=== PATIENT | male | born 1955 | race Caucasian/White ===

== ENCOUNTER → 2017-03-04 | Outpatient (REF) | payer BC, OTHER | LOC: M LAB REF 12:45 | DX: C44.509 Unspecified malignant neoplasm of skin of other part of trunk (principal) | CPT/HCPCS: 88305 ==

== ENCOUNTER → 2017-04-21 | Outpatient (CLI) | payer BC, OTHER | LOC: M EKG 09:15 | DX: I49.9 Cardiac arrhythmia, unspecified (principal) | CPT/HCPCS: 93226 ==

== ENCOUNTER 2019-01-24 09:23 | Inpatient (IN) | payer BC, OTHER ==
--- NOTE | 2019-01-16 14:10 | HPE ---
DATE OF ADMISSION: 01/24/2019 ATTENDING PHYSICIAN: Dr. Walsh CHIEF COMPLAINT: Right knee pain and stiffness. HISTORY: Patient is a pleasant 63-year-old male with progressively worsening right knee pain and stiffness. He failed to improve with conservative measures. He continues to have symptoms with weightbearing activities and activities of daily living. The patient consented for an elective right total knee arthroplasty with Dr. Walsh for his continued symptoms. Medical optimization completed with Dr. Gabriel and was reviewed during appointment today. CURRENT MEDICATIONS: - aspirin 81 mg daily - omeprazole 40 mg daily - hydrochlorothiazide 12.5 mg daily - losartan 100 mg daily - amlodipine 5 mg daily - Paxil 10 mg daily - Eliquis 2.5 mg daily ALLERGIES: 1. KEFLEX. CHRONIC MEDICAL CONDITIONS: Gastroesophageal reflux disease. Hypertension. Cardiomegaly. Multiple pulmonary nodules. History of acute popliteal deep vein thrombosis (DVT). Premature ventricular contractions (PVCs). Anxiety. Obstructive sleep apnea. History of basal cell carcinoma on the back. PAST SURGICAL HISTORY: Hernia repair. Right elbow surgery. SOCIAL HISTORY: The patient denies tobacco use and rarely consumes alcohol. REVIEW OF SYSTEMS: The patient denies fevers, chills, nausea, vomiting or diarrhea. Denies chest pain, shortness of breath, lightheadedness or dizziness. Denies any recent upper respiratory or urinary tract infection symptoms. He denies any abdominal pain. He does have right greater than left knee pain with weightbearing activities and activities of daily living. PHYSICAL EXAMINATION: GENERAL: Well-nourished, well-developed male in no apparent distress. He is alert, oriented and cooperative. Mood and affect are appropriate. Breathing is regular and nonlabored. VITAL SIGNS: Height 6 feet 2-1/2 inches, weight 291.2 pounds, temperature 97.4, heart rate 66, respirations 17, blood pressure 136/80. NECK: Supple without lymphadenopathy. HEART: Regular rate and rhythm. LUNGS: Clear to auscultation bilaterally. ABDOMEN: Bowel sounds are present. Abdomen is soft and nontender to palpation. MUSCULOSKELETAL: Right knee exhibits no gross abnormalities. Skin is intact. Tenderness to palpation noted along the medial and lateral joint line. The patient can extend knee to about 2 degrees and flex to about 100 degrees. Right lower extremity strength is 5/5. No hip irritability elicited with range of motion testing. The patient's calf is soft, nontender to palpation with no palpable cords noted. He is neurovascularly intact distally. LABORATORY DATA: Chest x-ray no acute disease. Right knee x-ray notable for end-stage degenerative changes. EKG reveals marked sinus bradycardia with nonspecific ST wave abnormalities. Comprehensive metabolic profile: Sodium 140, potassium 4.1, chloride 101, carbon dioxide 29.8, alkaline phosphatase 84, glucose 95, BUN elevated at 28, creatinine 1.07, GFR greater than 60, BUN/creatinine ratio elevated at 26, total protein 7.5, albumin 4.3, albumin-globulin ratio 1.3, calcium 9.8, total bilirubin elevated at 1.2, AST 26, ALT 47, anion gap 13. Complete blood count: WBC is 6.4, RBC 5.81, hemoglobin elevated at 18.5, hematocrit elevated at 53.5, platelets 164. Prothrombin time 14.3, INR 1.1. IMPRESSION: Right knee osteoarthritis with x-rays notable for end-stage degenerative changes. PLAN: The patient has consented for an elective right total knee arthroplasty with Dr. Walsh for his continued symptoms. Medical optimization completed with Dr. Madi Gabriel. TED
[~2019-01-24] VITALS: Ht 190.5 cm; Wt 132.9 kg
[~2019-01-24 09:23] MED LIST: ACETAMINOPHEN 500 MG TAB PO ONE; AMLO5TAB6 PO; ASPI81TA85 PO; ELIQ2.5T PO; HYDR12CA PO; LIDOCAINE 1% MDV 20ML VIAL SQ PRN; LIDOCAINE 2% INJ 100 MG/5 ML SDV (FOR ANES.) As Ordered ONE; LOSA100T50 PO; LR 1,000 ML IV ONE; MIDAZOLAM INJ 2 MG/2 ML VIAL (J2250) As Ordered ONE; OMEP40CA97 PO; ONDANSETRON 4MG/2ML VIAL (J2405) As Ordered ONE; PAXI10TA12 PO; PROPOFOL 200 MG/20 ML VIAL As Ordered ONE; ceFAZolin SOD 1 GM in D5W MINI-BAG PLUS 50 ML IV ONE; ceFAZolin SOD 2 GM in IV 1 EA IV ONE; fentaNYL 100 MCG/2 ML INJECTION (J3010) As Ordered ONE
[2019-01-24] MEDS ORDERED: ceFAZolin 1GM INJ (J0690 PER 500MG) As Ordered ONE ×2 (09:39→10:31)
[2019-01-24] MEDS ORDERED: ceFAZolin 2 GM/D5W 50 ML IV BAG (J0690 PER 500MG) As Ordered ONE (09:40)
[2019-01-24] MEDS ORDERED: VANCOMYCIN 1000 MG/20 ML VIAL (J3370) As Ordered ONE (10:13)
[2019-01-24] MEDS ORDERED: VIAL MATE ADAPTER XX ONE ×2 (10:13→10:14)
[2019-01-24] MEDS ORDERED: TRANEXAMIC ACID 100 MG/ML 10ML VIAL As Ordered ONE (10:30)
[2019-01-24] MEDS ORDERED: BUPIVACAINE LIPOSOME/PF 1.3% 20ML VIAL (13.3MG/ML)(EXPAREL)(C9290 PER1MG) As Ordered ONE (10:31)
[2019-01-24] MEDS ORDERED: EPINEPHrine INJ 1 MG/ML 1ML AMP As Ordered ONE (10:31)
[2019-01-24] MEDS ORDERED: BUPIVACAINE HCL 0.25% 10 ML VIAL As Ordered ONE (10:31)
[2019-01-24] MEDS ORDERED: ENOX150I3 SC (10:31)
[2019-01-24] MEDS ORDERED: VANCOMYCIN HCL 1,000 MG, VIAL MATE ADAPTER 1 EACH in D5W 250 ML IV ONE (11:00)
[2019-01-24] MEDS ORDERED: fentaNYL 100 MCG/2 ML INJECTION (J3010) As Ordered ONE (11:24)
[2019-01-24] MEDS ORDERED: MIDAZOLAM INJ 2 MG/2 ML VIAL (J2250) As Ordered ONE (11:24)
[2019-01-24] MEDS ORDERED: fentaNYL 100 MCG/2 ML INJECTION (J3010) IV ONE (12:30)
[2019-01-24] MEDS ORDERED: MIDAZOLAM INJ 2 MG/2 ML VIAL (J2250) IV ONE (12:30)
[2019-01-24] MEDS ORDERED: ePHEDrine SULFATE 25 MG/5 ML(5MG/ML) SYRINGE As Ordered ONE (13:17)
[2019-01-24] MEDS ORDERED: PROPOFOL 200 MG/20 ML VIAL As Ordered ONE (13:17)
[2019-01-24] MEDS ORDERED: LIDOCAINE 1% MDV 20ML VIAL ONE (14:27)
[2019-01-24] MEDS ORDERED: dexameTHASONE 10 MG/1 ML VIAL PRES.FREE (J1100) ONE (14:27)
[2019-01-24] MEDS ORDERED: ROPIvacaine 0.5% 30 ML INJECTION (J2795 PER 1MG) ONE (14:27)
[2019-01-24] MEDS ORDERED: ONDANSETRON 4MG/2ML VIAL (J2405) IV PRN (14:45)
[2019-01-24] MEDS ORDERED: HYDROMORPHONE HCL 0.5 MG/ 0.5 ML SYRINGE (J1170 PER 1) IV PRN ×3 (14:45)
[2019-01-24] MEDS ORDERED: LR 1,000 ML IV SCH (14:45)
[2019-01-24] MEDS ORDERED: ACETAMINOPHEN TAB 650MG DOSE (2X325MG) PO PRN (14:45)
[2019-01-24] MEDS ORDERED: fentaNYL 100 MCG/2 ML INJECTION (J3010) IV PRN (14:45)
[2019-01-24] MEDS ORDERED: FLEET ENEMA PR PRN (14:45)
[2019-01-24] MEDS ORDERED: PERCOCET 5MG/325MG TAB PO PRN (14:45)
--- NOTE | 2019-01-24 14:59 | REP ---
Two views right knee: 01/24/2019. Indication: Postoperative assessment. Comparison: None. Findings: The patient is immediately status post total right knee arthroplasty with the hardware well seated and intact. Expected gas is noted within the postoperative soft tissues. There is no evidence of acute fracture. Bony alignment appears anatomic. Impression: Expected postoperative sequelae of the right knee. Electronically Signed by Justino White DO 01/24/2019 02:50 P
[2019-01-24 15:45] VITALS: BP 123/69
[2019-01-24] MEDS: LR 1,000 ML IV SCH (15:49)
[2019-01-24 16:15] VITALS: BP 120/68
[2019-01-24 17:15] VITALS: BP 128/69
[2019-01-24] MEDS: PERCOCET 5MG/325MG TAB PO PRN ×2 (17:56→21:46)
[2019-01-24 18:15] VITALS: BP 117/70
--- NOTE | 2019-01-24 18:15 | HPEPDOC ---
General Date of Admission Jan 24, 2019 at 09:23 Date of Service: Jan 24, 2019 Attending Physician: CASTILLO OWEN MD Chief Complaint The patient is a 63-year-old male admitted with a reason for visit of Osteoarthritis Right Knee. Source: Patient Exam Limitations: Clinical conditions Timing/Duration: Other (post op) History of Present Illness 63 yo man with osteoarthritis, HTN, obesity, DIEGO, history of DVT on eliquis at baseline, currently on Lovenox perisurgery is admitted for observation post elective right total knee arthroplasty with Dr. Walsh, with medicine consulted for medical management of his chronic conditions. Surgery went well and at this time, he has no complaints reporting that he is only beginning to feel his legs now as he had a block and has no pain at this time. Home Medications Scheduled Amlodipine Besylate (Amlodipine Besylate) 5 Mg Tablet, 5 MG PO DAILY, (Reported) Apixaban (Eliquis) 2.5 Mg Tablet, 2.5 MG PO BID, (Reported) Aspirin (Aspir 81) 81 Mg Tablet.dr, 81 MG PO DAILY, (Reported) Enoxaparin Sodium (Enoxaparin Sodium) 150 Mg/1 Ml Syringe, 130 MG SC BID, (Reported) Hydrochlorothiazide (Hydrochlorothiazide) 12.5 Mg Capsule, 12.5 MG PO DAILY, (Reported) Losartan Potassium (Losartan Potassium) 100 Mg Tablet, 100 MG PO DAILY, (Reported) Omeprazole (Omeprazole) 40 Mg Capsule.dr, 40 MG PO 3XW, (Reported) Paroxetine HCl (Paxil) 10 Mg Tablet, 20 MG PO DAILY, (Reported) Allergies Coded Allergies: cephalexin (Verified Adverse Reaction, Mild, nausea, 01/23/19) Past Medical History Medical History Gastroesophageal reflux disease. Hypertension. Cardiomegaly. Multiple pulmonary nodules. History of acute popliteal deep vein thrombosis (DVT). Premature ventricular contractions (PVCs). Anxiety. Obstructive sleep apnea. History of basal cell carcinoma on the back Surgical History Hernia repair. Right elbow surgery. Family History Significant Family History: No pertinent family hx Social History * Smoker: Denies Alcohol: rarely Drugs: denies Recent Travel/Sick Contacts: Denies: Recent travel, Recent sick contacts Psychosocial History: No pertinent psych hx The patient denies tobacco use and rarely consumes alcohol. A-FIB/CHADSVASC A-FIB History Current/History of A-Fib/PAF?: No Current PO Anticoag Therapy: No Age/Risk Factor Scoring CHADSVASC: CHADSVASC Response (Comments) Value Age Risk Factor Age < 65 years old 0 Gender Risk Factor Male 0 Hx of CHF No 0 Hx of HTN Yes 1 Hx of Stroke/TIA/or VTE No 0 Hx of Diabetes No 0 Hx of Vascular Disease No 0 Total 1 Treatment Treatment ordered: Other (lovenox) Other anticoagulant ordered: Lovenox for history of DVTs Review of Systems Constitutional: Denies: Chills, Fever, Night Sweats Eyes: Denies: Pain, Vision change ENT: Denies: Head Aches, Ear Pain, Dysphagia Skin: Denies: Rash, Lesions, Breakdown Pulmonary: Denies: Dyspnea, Cough Cardiovascular: Denies: Chest Pain, Palpitations, Orthopnea, Paroxysmal Noc. Dyspnea, Lt Headedness Gastrointestinal: Denies: Nausea, Vomiting, Abdominal Pain, Diarrhea Genitourinary: Denies: Dysuria, Frequency, Incontinence, Retention Hematologic: Denies: Bruising, Bleeding Excessively Endocrine: Denies: Polydipsia, Polyphagia, Polyuria, Heat Intolerance, Cold Intolerance, Other Endocrine Sx Musculoskeletal: Reports: Joint Pain (history of knee pain, and is the reason the surgery was done); Denies: Neck Pain, Back Pain, Muscle Pain, Spasms Neurological: Denies: Weakness, Numbness, Change in speech, Confusion Psych: Reports: Mood Normal; Denies: Depression, Memory Issues Physical Examination General Exam: Positive: Alert, No Acute Distress Eye Exam: Positive: PERRLA, Conjunctiva & lids normal, EOMI; Negative: Sclera icteric ENT Exam: Positive: Atraumatic, Mucous membr. moist/pink, Pharynx Normal Neck Exam: Positive: Supple; Negative: JVD, thyromegaly, +2 carotid pulse wo bruit, Lymphadenopathy, Other Chest Exam: Positive: Clear to auscultation, Normal air movement Heart Exam: Positive: Rate Normal, Regular Rhythm, Normal S1, Normal S2; Negative: Murmurs, Rubs Abdomen Exam: Positive: Normal bowel sounds, Soft; Negative: Tenderness, Hepatospenomegaly Extremity Exam: Positive: Normal pulses; Negative: Clubbing, Cyanosis, Edema Skin Exam: Positive: Nl turgor and temperature; Negative: Breakdown, Lesion Neuro Exam: Positive: Normal Speech, Cranial Nerves 3-12 NL, Other (UE strength 5/5, LE exam limited ) Psych Exam: Positive: Mental status NL, Mood NL, Oriented x 3 Vital Signs Vital Signs Date Time Temp Pulse Resp B/P (MAP) Pulse Ox O2 Delivery O2 Flow Rate FiO2 01/24/19 17:56 18 Room Air 01/24/19 17:15 97.9 58 128/69 (88) 96 2.0 Assessment/Plan 63 yo man with a history hypertension, GERD, DVT usually on eliquis at baseline, recently on lovenox perisurgery, anxiety, DIEGO and chronic arthritic knee pain who was admitted post an elective right total knee arthroplasty with Dr. Walsh who is currently doing well, for whom medicine is consulted for chronic medical conditions. Plan: Post op pain management: per surgery HTN: restart home meds tomorrow morning -Novarsc, HCTZ, Losartan History of VTEs: -will give lovenox 130 SC tonight to continue the perioperative anticoagulation plan -to resume eliquis tomorrow morning if he remains stable with no evidence of bleeding -Would at that time also resume ASA81 Plan / VTE VTE Prophylaxis Ordered?: Yes CASTILLO OWEN MD Jan 24, 2019 18:15
[2019-01-24 19:50] VITALS: BP 118/71
[2019-01-24] MEDS ORDERED: ENOXAPARIN 150 MG/ML SYR (J1650) SC SCH (21:00)
[2019-01-25] VITALS: BP 118/74
[2019-01-25] MEDS: LR 1,000 ML IV SCH (00:59)
[2019-01-25] MEDS: VANCOMYCIN HCL 1,000 MG, VIAL MATE ADAPTER 1 EACH in D5W 250 ML IV SCH ×2 (01:49→11:08)
[2019-01-25 04:15] VITALS: BP 133/82
[2019-01-25] MEDS: PERCOCET 5MG/325MG TAB PO PRN ×3 (05:49→13:50)
[2019-01-25] MEDS ORDERED: PERC5TAB12 PO (06:26)
[2019-01-25 06:37] LABS: HEMATOCRIT 47.4 % (42.0-52.0); HEMOGLOBIN 16.9 g/dl (13.5-17.5); MEAN CORPUSCULAR HEMOGLOBIN 32.1 pg (27.0-33.0); MEAN CORPUSCULAR HGB CONC 35.7 g/dl (32.0-36.5); MEAN CORPUSCULAR VOLUME 89.9 fl (80.0-96.0); PLATELET COUNT, AUTOMATED 179 10^3/uL (150-450); RED BLOOD COUNT 5.27 10^6/uL (4.30-6.10)
[2019-01-25 06:49] LABS: INR 1.16; PROTHROMBIN TIME 14.5 SECONDS (11.8-14.0)
[2019-01-25 06:59] LABS: BLOOD UREA NITROGEN 22 MG/DL (7-18); CALCIUM LEVEL 8.9 MG/DL (8.8-10.2); CARBON DIOXIDE LEVEL 28 MEQ/L (21-32); CHLORIDE LEVEL 100 MEQ/L (98-107); CREATININE FOR GFR 1.11 MG/DL (0.70-1.30); GLOMERULAR FILTRATION RATE > 60.0 (>49); GLUCOSE, FASTING 138 MG/DL (70-100); POTASSIUM SERUM 4.1 MEQ/L (3.5-5.1); SODIUM LEVEL 136 MEQ/L (136-145)
[2019-01-25 07:58] LABS: HEMATOCRIT 45.8 % (42.0-52.0); HEMOGLOBIN 16.2 g/dl (13.5-17.5); MEAN CORPUSCULAR HEMOGLOBIN 31.8 pg (27.0-33.0); MEAN CORPUSCULAR HGB CONC 35.4 g/dl (32.0-36.5); PLATELET COUNT, AUTOMATED 174 10^3/uL (150-450); RED BLOOD COUNT 5.09 10^6/uL (4.30-6.10); WHITE BLOOD COUNT 20.1 10^3/uL (4.0-10.0)
[2019-01-25 07:59] VITALS: BP 133/82
[2019-01-25] MEDS ORDERED: RIVAROXABAN 10 MG TAB (XARELTO) PO SCH (08:00)
[2019-01-25] MEDS ORDERED: MIRALAX *UNIT DOSE* 17GM PACKET PO SCH (09:00)
[2019-01-25] MEDS ORDERED: amLODIPine 5 MG TAB PO SCH (09:00)
[2019-01-25] MEDS ORDERED: SENOKOT S TAB PO SCH (09:00)
[2019-01-25] MEDS ORDERED: APIXABAN 2.5 MG TAB (ELIQUIS) PO SCH (09:00)
[2019-01-25] MEDS ORDERED: PARoxetine 20 MG TAB PO SCH (09:00)
[2019-01-25] MEDS ORDERED: hydroCHLOROthiazide 12.5 MG CAPSULE PO SCH (09:00)
[2019-01-25] MEDS ORDERED: LOSARTAN 50 MG TAB PO SCH (09:00)
[2019-01-25] MEDS ORDERED: MOM 30ML SUSPENSION UDC PO SCH (09:00)
[2019-01-25] MEDS ORDERED: OMEPRAZOLE 20 MG CAP PO SCH (09:00)
--- NOTE | 2019-01-25 09:14 | RO ---
DATE OF PROCEDURE: 01/24/2019 PREOPERATIVE DIAGNOSIS: Right knee degenerative arthritis. POSTOPERATIVE DIAGNOSIS: Same. PROCEDURE: Right total knee arthroplasty using a size 9 cruciate retaining femoral component. Size 9 tibial tray with a 6 mm rotating platform polyethylene insert, 8 mm polyethylene button. All components were cemented. Prosthesis was made by [employer]. It was an Att[employer] knee. SURGEON: Dr. Prasad Walsh CONTAINERS SALES REPRESENTATIVE: Mrs. Ghada Beth ANESTHESIA: Spinal with right femoral nerve block. COMPLICATIONS: None. PROCEDURE: Antibiotics were given intravenously preoperatively under a successful right femoral nerve block and then a spinal anesthetic was induced and tourniquet was placed right upper thigh and not inflated. Right lower extremity was carefully prepped and draped in the usual sterile fashion and elevated and after an appropriate time out the tourniquet was inflated. A longitudinal incision was made for a medial parapatellar approach to the knee. Bovie cautery was used to coagulate crossing vessels. Subperiosteal dissection around the proximal medial and lateral tibial plateaus was performed and then we everted the patella and flexed the knee and debrided the ACL. The Drill was placed down the center of the femoral canal followed intramedullary isabel and the distal femoral cutting jig set at 5 degree valgus cut angle at 9 mm resection level for a right knee. The block was pinned into position. Distal femoral cut was performed. AP sizing jig sized for a size 9. 30 degrees of external rotation were dialed in and the pins were placed and the 4 in 1 block applied and secured to the distal femur. Anterior and posterior chamber cuts were then performed. We then placed the jig for the sulcus cut and pinned it under the distal femur and performed a sulcus cut osteotomy. We then exposed the proximal tibia and used the extramedullary alignment jig to estimate being parallel to the mechanical axis of the tibia referencing off the medial tibial condyle. This was set as a 4 mm resection level. Block was pinned in to position and the secondary check with the extramedullary isabel confirmed that we appeared to be parallel to the mechanical axis. We then performed the proximal tibial osteotomy. Laminar tea blender was then placed laterally and we performed a completion medial meniscectomy, debridement of the posterior medial osteophytes and then placed the lamina tea blender medially and performed a completion lateral meniscectomy and debridement. Posterolateral osteophyte. We then placed a spacer block and the 6 mm spacer fit the best. It was stable to varus and valgus stress testing in both flexion and in extension. He had full extension on the table and easily flexed again at 90 degrees. We then removed the spacer block and exposed the proximal tibia sized for a #9 tibial tray which is pinned into position followed by the reamer and the broach. Then the trial was placed followed by the trial femoral component. The knee was brought in to extension. The patella was everted and a patellar osteotomy was performed sized for a 38 button, lug holes drilled and trial was placed and the patellofemoral tracking was noted to be anatomic. We then drilled the lug holes for the femur and then removed all the trial components and then placed Exparel in the subperiosteal tissues around the distal femur and the proximal tibia and copiously pulsatile lavaged irrigated out the knee joint. As I was irrigating out the knee joint Ghadacatrachita Beth my news production assistant mixed the cement at the back table. She also was critical to the success of this difficult surgery by helping with appropriate soft-tissue retraction, helped to manipulate the knee, helped to close the wound and mix the cement, prepare the patient for surgery amongst many other tasks to allow me to perform the operation smoothly, efficiently and safely. Once all of the bony surfaces had been thoroughly irrigated and dried we cemented the tibial tray and removed excess cement and placed the polyethylene and cemented the femoral component and removed excess cement and brought the knee out in extension, everted the patella and cemented the patellar button. Removed excess cement. We had the leg in full extension with the clamp and patella in place we then copiously irrigated out the knee joint until the cement hardened. TXA was placed in the knee and we began closing the apex of the arthrotomy with two #1 PDS sutures, medial parapatellar area was closed with a #1 PDS suture then we closed the rest of the capsule with a running #1 double arm- Stratafix. The tourniquet was then released and we irrigated between layers and closed the deep subdermal tissues with interrupted 2-0 PDS sutures and skin was closed with keshav covered by an Opti foam dry sterile bulky dressing. The patient was then transferred to the recovery room in stable condition. There are no intraoperative complications.
[2019-01-25 10:00] VITALS: BP 124/79
--- NOTE | 2019-01-25 11:56 | IPNPDOC ---
Text Note Date of Service The patient was seen on 01/25/19. NOTE Subjective: -Doing well, pain well controlled -Otherwise no acute events overnight Objective: Vitals: hemodynamically stable and afebrile General: Well appearing, obese, NAD HEENT: NCAT, PERRLA, EOMI, MMM Neck: supple, no JVD Pulm: CTAB Cardiac: RRR, no mrg Abd: obese, normoactive, soft, NTND Ext: WWP, 2+ DP pulses MSK: FROM in UE, LE exam limited by pain given recent surgery Neuro: grossly nonfocal examination with cranial nerves 2-12 intact and moving all extremities Psych: AOx3 Labs: Reviewed WBC 22 ( no prior for comparison), Cr 1.1 Assessment 63 yo man with a history hypertension, GERD, DVT usually on eliquis at baseline, recently on lovenox perisurgery, anxiety, DIEGO and chronic arthritic knee pain who was admitted post an elective right total knee arthroplasty with Dr. Walsh who is currently doing well, for whom medicine is consulted for chronic medical conditions. Plan: Leukocytosis: likely reactive post op given nonfocal exam, hemodynamic stability and afebrile. -OK to discharge with close PCP follow up. Post op pain management: per surgery HTN: restart home meds tomorrow morning -Restart Novarsc, HCTZ, Losartan this morning History of VTEs: -resume eliquis this morning -resume ASA81 VS,Fishbone, I+O VS, Fishbone, I+O Laboratory Tests 01/25/19 06:11 Vital Signs Date Time Temp Pulse Resp B/P (MAP) Pulse Ox O2 Delivery O2 Flow Rate FiO2 01/25/19 06:32 19 01/25/19 04:15 97.4 53 133/82 (99) 95 Nasal Cannula 2.0 I&O- Last 24 Hours up to 6 AM 01/25/19 06:00 Intake Total 3455 ml Output Total 1120 ml Balance 2335 ml CASTILLO OWEN MD Jan 25, 2019 07:26
== END 2019-01-25 13:50 | disposition home or self-care (01) | DRG 302 ==
LOC: M OR 09:23 → M MS5PR 15:30
PROVIDERS: ADMIT Orthopaedic Surgery; ATTEND Orthopaedic Surgery
PROC: 0SRC0J9 Replacement of Right Knee Joint with Synthetic Substitute, Cemented, Open Approach (ICD-10-PCS; principal; 2019-01-24 12:00)
DX: M17.11 Unilateral primary osteoarthritis, right knee (principal); Z79.82 Long term (current) use of aspirin; Z79.899 Other long term (current) drug therapy; K21.9 Gastro-esophageal reflux disease without esophagitis; I10 Essential (primary) hypertension; R91.8 Other nonspecific abnormal finding of lung field; F41.9 Anxiety disorder, unspecified; Z86.718 Personal history of other venous thrombosis and embolism; G47.33 Obstructive sleep apnea (adult) (pediatric); Z85.828 Personal history of other malignant neoplasm of skin; I51.7 Cardiomegaly; E66.9 Obesity, unspecified; D72.829 Elevated white blood cell count, unspecified

== ENCOUNTER 2019-05-07 07:02 | Inpatient (IN) | payer BC, OTHER ==
--- NOTE | 2019-05-03 15:34 | HPE ---
DATE OF ADMISSION: 05/07/2019 ATTENDING PHYSICIAN: Dr. Walsh CHIEF COMPLAINT: Left knee pain and stiffness. HISTORY: The patient is a pleasant 63-year-old male with progressively worsening left knee pain and stiffness. He failed to improve with conservative measures. He continued to have symptoms with weightbearing activities and activities of daily living. He has consented for an elective left total knee arthroplasty with Dr. Walsh for his continued symptoms. Medical optimization completed with Dr. Gabriel. CURRENT MEDICATIONS: - aspirin 81 mg daily - hydrochlorothiazide 12.5 mg daily - Paxil 10 mg daily - omeprazole 40 mg daily - losartan 100 mg daily - amlodipine 5 mg daily - Eliquis 2.5 mg daily ALLERGIES: KEFLEX CHRONIC MEDICAL CONDITIONS: Hypertension, cardiomegaly, multiple pulmonary nodules, gastroesophageal reflux disease, history of deep vein thrombosis (DVT), PVCs, anxiety, obstructive sleep apnea on C-PAP, history of basal cell carcinoma on the back. PAST SURGICAL HISTORY: Right total knee arthroplasty, right elbow surgery, hernia repair. SOCIAL HISTORY: The patient denies tobacco use and rarely consumes alcohol. REVIEW OF SYSTEMS: The patient denies fevers, chills, nausea, vomiting or diarrhea. Denies chest pain, shortness of breath, lightheadedness, dizziness or headaches. Denies any recent upper respiratory or urinary tract infection symptoms. Denies abdominal pain. He does continue to have left knee pain with weightbearing activities and activities of daily living. PHYSICAL EXAMINATION: General: Well-nourished, well-developed male in no apparent distress. He is alert, oriented and cooperative. Mood and affect are appropriate. Vital signs: Blood pressure 124/80, heart rate 66, respirations 18, height 6 feet 3 inches, weight 298 pounds, temperature 97.7. Neck: Supple without lymphadenopathy. Heart: Regular rate and rhythm. Lungs: Clear to auscultation bilaterally. Breathing is regular and nonlabored. Abdomen: Bowel sounds are present. Abdomen is soft and nontender to palpation. Musculoskeletal: Left knee exhibits no gross abnormalities. Skin is intact. There is tenderness along the medial joint line. The patient can extend knee fully and flex to about 110 degrees. Left lower extremity strength is 5/5. There was no hip irritability elicited with range of motion testing. The patient's calf is soft, nontender to palpation with no palpable cords noted. He is neurovascularly intact distally. DIAGNOSTIC DATA: Chest x-ray showed no acute disease. EKG marked sinus bradycardia with nonspecific ST abnormality. Prothrombin time 13.9, INR 1.1. Complete blood count WBC is 7.7, RBCs 5.76, hemoglobin elevated at 17.9, hematocrit elevated at 52.4, platelets 184. Comprehensive metabolic profile: Sodium 141, potassium 3.8, chloride 102, CO2 31, glucose elevated at 109, BUN elevated at 25, creatinine 1.02, GFR greater than 60, total protein 7.2, albumin 4.0, globulin 3.2, albumin-globulin ratio 1.3, calcium 9, total bilirubin elevated at 1.1, alkaline phosphatase 101, AST 23, ALT 32, anion gap 12, erythrocyte sedimentation rate 3. IMPRESSION Left knee degenerative arthritis with x-rays notable for end-stage degenerative changes. PLAN: The patient has consented for an elective left total knee arthroplasty with Dr. Walsh for his continued symptoms. Medical optimization completed with Dr. Gabriel. Pre and postoperative instructions to include but not limited to need to be nothing by mouth after midnight, length of stay, when to stop anti- inflammatories and aspirin, and importance of following primary long term care social worker or cuffer recommendations for taking daily medications and stopping anticoagulants. MTDD
[~2019-05-07] VITALS: Ht 190.5 cm; Wt 133.8 kg
[~2019-05-07 07:02] MED LIST changes: +ASPI81TA26 PO; +ENOX150I3 SC; -LIDOCAINE 1% MDV 20ML VIAL SQ PRN; -LIDOCAINE 2% INJ 100 MG/5 ML SDV (FOR ANES.) As Ordered ONE; -MIDAZOLAM INJ 2 MG/2 ML VIAL (J2250) As Ordered ONE; -ONDANSETRON 4MG/2ML VIAL (J2405) As Ordered ONE; +PERC5TAB12 PO; -PROPOFOL 200 MG/20 ML VIAL As Ordered ONE; +VANCOMYCIN HCL 750 MG, VIAL MATE ADAPTER 1 EACH in D5W 250 ML IV ONE; -ceFAZolin SOD 1 GM in D5W MINI-BAG PLUS 50 ML IV ONE; -ceFAZolin SOD 2 GM in IV 1 EA IV ONE; -fentaNYL 100 MCG/2 ML INJECTION (J3010) As Ordered ONE; +fentaNYL 100 MCG/2 ML INJECTION (J3010) IV SCH
[2019-05-07] MEDS ORDERED: ROPIvacaine 0.5% 30 ML INJECTION (J2795 PER 1MG) ONE (07:03)
[2019-05-07] MEDS ORDERED: EPINEPHrine INJ 1 MG/ML 1ML VIAL ONE (07:03)
[2019-05-07] MEDS ORDERED: LIDOCAINE 1% MDV 20ML VIAL ONE (07:03)
[2019-05-07] MEDS ORDERED: ENOX150I3 SUBQ (07:40)
[2019-05-07] MEDS ORDERED: MIDAZOLAM INJ 2 MG/2 ML VIAL (J2250) As Ordered ONE ×2 (08:38→10:00)
[2019-05-07] MEDS ORDERED: fentaNYL 100 MCG/2 ML INJECTION (J3010) As Ordered ONE ×2 (08:38→10:00)
[2019-05-07] MEDS: MIDAZOLAM INJ 2 MG/2 ML VIAL (J2250) IV SCH ×2 (08:50→08:52)
[2019-05-07] MEDS ORDERED: TRANEXAMIC ACID 100 MG/ML 10ML VIAL As Ordered ONE (09:01)
[2019-05-07] MEDS ORDERED: BUPIVACAINE HCL 0.25% 30 ML VIAL As Ordered ONE (09:01)
[2019-05-07] MEDS ORDERED: CLINDAMYCIN INJ 900MG/6ML VIAL As Ordered ONE (09:01)
[2019-05-07] MEDS ORDERED: EPINEPHrine INJ 1 MG/ML 1ML VIAL As Ordered ONE (09:01)
[2019-05-07] MEDS ORDERED: BUPIVACAINE LIPOSOME/PF 1.3% 20ML VIAL (13.3MG/ML)(EXPAREL)(C9290 PER1MG) As Ordered ONE (09:02)
[2019-05-07] MEDS ORDERED: ROCURONIUM BROMIDE 50 MG/5 ML VIAL As Ordered ONE (09:49)
[2019-05-07] MEDS ORDERED: SUGAMMADEX SODIUM 500 MG/5 ML VIAL (BRIDION) As Ordered ONE (10:00)
[2019-05-07] MEDS ORDERED: LIDOCAINE 2% INJ 100 MG/5 ML SDV (FOR ANES.) As Ordered ONE (10:00)
[2019-05-07] MEDS ORDERED: propofoL 200 MG/20 ML VIAL As Ordered ONE (10:00)
[2019-05-07] MEDS ORDERED: dexameTHASONE 4 MG/ML 1ML VIAL (J1100) As Ordered ONE (10:03)
[2019-05-07] MEDS ORDERED: HYDROmorphone HCL 2 MG/ML 1ML VIAL (J1170) As Ordered ONE (10:05)
[2019-05-07] MEDS ORDERED: ONDANSETRON 4MG/2ML VIAL (J2405) As Ordered ONE (10:18)
[2019-05-07] MEDS ORDERED: KETOROLAC 60 MG/2 ML VIAL (J1885) As Ordered ONE (11:28)
[2019-05-07] MEDS ORDERED: PERCOCET 5MG/325MG TAB PO PRN ×2 (12:30)
[2019-05-07] MEDS ORDERED: MORPHINE 2 MG/ML 1ML VIAL (J2270) IV PRN (12:30)
[2019-05-07] MEDS ORDERED: METOCLOPRAMIDE INJ 10MG/2ML VIAL (J2765) IV PRN (12:30)
[2019-05-07] MEDS ORDERED: ACETAMINOPHEN TAB 650MG DOSE (2X325MG) PO PRN (12:30)
[2019-05-07] MEDS ORDERED: MORPHINE 4 MG/ML 1ML VIAL/SYRINGE (J2270) IV PRN (12:30)
[2019-05-07] MEDS ORDERED: LR 1,000 ML IV SCH ×2 (12:30)
[2019-05-07] MEDS ORDERED: fentaNYL 100 MCG/2 ML INJECTION (J3010) IV PRN (12:30)
[2019-05-07] MEDS ORDERED: ONDANSETRON 4MG/2ML VIAL (J2405) IV PRN ×2 (12:30)
--- NOTE | 2019-05-07 12:47 | REP ---
Left knee series: Two views. History: Postop placement. No comparison study. Findings: AP and lateral views of the left knee demonstrate left knee arthroplasty components in good position. Periarticular soft tissue emphysema and swelling is seen. Anterior skin keshav are noted. Impression: Status post left knee arthroplasty. Electronically Signed by Ángel Camara MD 05/07/2019 12:38 P
[2019-05-07] MEDS: PERCOCET 5MG/325MG TAB PO PRN ×2 (13:00→18:59)
[2019-05-07 14:30] VITALS: BP 135/82
[2019-05-07 15:00] VITALS: BP 136/82
[2019-05-07 16:00] VITALS: BP 148/89
--- NOTE | 2019-05-07 16:42 | HPEPDOC ---
General Date of Admission 05/07/19 Date of Service: May 07, 2019 Chief Complaint The patient is a 63-year-old male admitted with a reason for visit of Left Knee Oa. Source: Patient, RN/, Old records History of Present Illness Consultation report: Consultation requested by Dr Edin Plascencia Consultation for management of medical commorbidities HPI: This is a 63 year old male with with multiple medical commorbidities was admitted for elective left total knee rplacement for advanced osteoarthritis which could not be managed medically. Surgery was uneventful. i am seeing the patient after surgery. He complains of pain in the left knee at the surgical site, sharp throbbing. without any radiation about 6/10 in intensity. Home Medications Scheduled Amlodipine Besylate (Amlodipine Besylate) 5 Mg Tablet, 5 MG PO DAILY, (Reported) Apixaban (Eliquis) 2.5 Mg Tablet, 2.5 MG PO BID, (Reported) Aspirin (Aspirin EC) 81 Mg Tablet.dr, 81 MG PO DAILY, (Reported) Enoxaparin Sodium (Enoxaparin Sodium) 150 Mg/1 Ml Syringe, 140 MG SUBQ BID, (Reported) Hydrochlorothiazide (Hydrochlorothiazide) 12.5 Mg Capsule, 12.5 MG PO DAILY, (Reported) Losartan Potassium (Losartan Potassium) 100 Mg Tablet, 100 MG PO DAILY, (Reported) Omeprazole (Omeprazole) 40 Mg Capsule.dr, 40 MG PO 3XW, (Reported) Paroxetine HCl (Paxil) 10 Mg Tablet, 20 MG PO DAILY, (Reported) Scheduled PRN Oxycodone HCl/Acetaminophen (Percocet 5-325 mg Tablet) 1 Each Tablet, 1 TAB PO Q4H PRN for PAIN Allergies Coded Allergies: cephalexin (Verified Adverse Reaction, Mild, nausea, 04/24/19) Past Medical History Medical History Gastroesophageal reflux disease. Hypertension. Cardiomegaly. Multiple pulmonary nodules. History of acute popliteal deep vein thrombosis (DVT). Premature ventricular contractions (PVCs). Anxiety. Obstructive sleep apnea on CPAP History of basal cell carcinoma on the back Surgical History Right total knee arthroplasty, right elbow surgery, Family History Mother breast cancer Father bone cancer Social History * Smoker: Denies Alcohol: rarely Drugs: denies A-FIB/CHADSVASC A-FIB History Current/History of A-Fib/PAF?: No Current PO Anticoag Therapy: Yes Review of Systems Constitutional: Denies: Chills, Fever, Night Sweats Eyes: Denies: Pain, Vision change ENT: Denies: Head Aches, Ear Pain, Dysphagia Skin: Denies: Rash, Lesions, Breakdown Pulmonary: Denies: Dyspnea, Cough Cardiovascular: Denies: Chest Pain, Palpitations, Orthopnea, Paroxysmal Noc. Dyspnea, Lt Headedness Gastrointestinal: Denies: Nausea, Vomiting, Abdominal Pain, Diarrhea Genitourinary: Denies: Dysuria, Frequency, Incontinence, Retention Musculoskeletal: Reports: Joint Pain Physical Examination General Exam: Positive: Alert, Cooperative, No Acute Distress Eye Exam: Positive: PERRLA, Conjunctiva & lids normal, EOMI; Negative: Sclera icteric ENT Exam: Positive: Atraumatic, Mucous membr. moist/pink, Pharynx Normal Neck Exam: Positive: Supple; Negative: JVD, thyromegaly Chest Exam: Positive: Clear to auscultation, Normal air movement Heart Exam: Positive: Rate Normal, Regular Rhythm, Normal S1, Normal S2; Negative: Murmurs, Rubs Abdomen Exam: Positive: Normal bowel sounds, Soft; Negative: Tenderness, Hepatospenomegaly Extremity Exam: Positive: Normal pulses; Negative: Clubbing, Cyanosis, Edema Skin Exam: Positive: Nl turgor and temperature; Negative: Breakdown, Lesion Vital Signs Vital Signs Date Time Temp Pulse Resp B/P (MAP) Pulse Ox O2 Delivery O2 Flow Rate FiO2 05/07/19 09:30 50 16 139/81 (100) 99 Nasal Cannula 2 05/07/19 08:49 97.0 Assessment/Plan This is a 63 year old male with with multiple medical commorbidities was admitted for elective left total knee replacement for advanced osteoarthritis. I am seeing the patient for management of medical commorbidities in [facility] per ioperative period. Left total knee replacement pain control as per Ortho DVT prophylaxis with elquis. PT/OT Hypertension. continue losartan amlodipine with hold parameters hold HCTZ History of acute popliteal deep vein thrombosis (DVT). continue eliquis Anxiety. paroxetine Obstructive sleep apnea on CPAP Gastroesophageal reflux disease. PPI Plan / VTE VTE Prophylaxis Ordered?: Yes CATRINA JERRY MD May 07, 2019 10:33
[2019-05-07 17:00] VITALS: BP 129/77
[2019-05-07] MEDS: VANCOMYCIN HCL 1,000 MG, VIAL MATE ADAPTER 1 EACH in D5W 250 ML IV SCH (20:41)
[2019-05-07 22:00] VITALS: BP 130/76
[2019-05-08 02:00] VITALS: BP 131/75
[2019-05-08 06:00] VITALS: BP 133/73
[2019-05-08] MEDS ORDERED: PERC5TAB12 PO (06:50)
[2019-05-08 06:54] LABS: HEMATOCRIT 44.5 % (42.0-52.0); HEMOGLOBIN 15.6 g/dl (13.5-17.5); MEAN CORPUSCULAR HGB CONC 35.1 g/dl (32.0-36.5); MEAN CORPUSCULAR VOLUME 88.5 fl (80.0-96.0); PLATELET COUNT, AUTOMATED 151 10^3/uL (150-450); RED BLOOD COUNT 5.03 10^6/uL (4.30-6.10); WHITE BLOOD COUNT 17.2 10^3/uL (4.0-10.0)
[2019-05-08 07:21] LABS: ALBUMIN 3.3 GM/DL (3.2-5.2); ALT/SGPT 42 U/L (12-78); BILIRUBIN,TOTAL 0.7 MG/DL (0.2-1.0); BLOOD UREA NITROGEN 30 MG/DL (7-18); CALCIUM LEVEL 8.3 MG/DL (8.8-10.2); CARBON DIOXIDE LEVEL 31 MEQ/L (21-32); CHLORIDE LEVEL 102 MEQ/L (98-107); CREATININE FOR GFR 1.07 MG/DL (0.70-1.30); GLOMERULAR FILTRATION RATE > 60.0 (>49); GLUCOSE, FASTING 194 MG/DL (70-100); POTASSIUM SERUM 3.8 MEQ/L (3.5-5.1); SODIUM LEVEL 138 MEQ/L (136-145); TOTAL PROTEIN 6.1 GM/DL (6.4-8.2)
[2019-05-08] MEDS ORDERED: ASPIRIN 81 MG ENTERIC TAB PO SCH (09:00)
[2019-05-08] MEDS ORDERED: MOM 30ML SUSPENSION UDC PO SCH (09:00)
[2019-05-08] MEDS ORDERED: amLODIPine 5 MG TAB PO SCH (09:00)
[2019-05-08] MEDS ORDERED: PARoxetine 20 MG TAB PO SCH (09:00)
[2019-05-08] MEDS ORDERED: MIRALAX *UNIT DOSE* 17GM PACKET PO SCH (09:00)
[2019-05-08] MEDS ORDERED: OMEPRAZOLE 20 MG CAP PO SCH (09:00)
[2019-05-08] MEDS ORDERED: APIXABAN 2.5 MG TAB (ELIQUIS) PO SCH (09:00)
[2019-05-08] MEDS ORDERED: LOSARTAN 50 MG TAB PO SCH (09:00)
[2019-05-08] MEDS: PERCOCET 5MG/325MG TAB PO PRN (09:10)
[2019-05-08 09:11] VITALS: BP 133/73
[2019-05-08] MEDS: VANCOMYCIN HCL 1,000 MG, VIAL MATE ADAPTER 1 EACH in D5W 250 ML IV SCH (09:11)
[2019-05-08 10:00] VITALS: BP 142/75
--- NOTE | 2019-05-08 15:28 | RO ---
DATE OF PROCEDURE: 05/07/2019 PREPROCEDURE DIAGNOSIS: Left knee degenerative arthritis. POSTPROCEDURE DIAGNOSIS: Left knee degenerative arthritis. PROCEDURE: Left total knee arthroplasty using a size 9 cruciate retaining cemented femoral component, size 8 tibial tray with a 7 mm rotating platform, polyethylene insert, 38 mm polyethylene button. All components were cemented. Prosthesis made by [employer]. It was an Attune knee. SURGEON: Dr. Prasad Walsh MARKET RESEARCH INTERVIEWER: Ms. Ghada Beth ANESTHESIA: Left femoral nerve block with a general endotracheal tube anesthetic. COMPLICATIONS: None. ESTIMATED BLOOD LOSS: 20 mL. SPECIMEN: Joint surface. DESCRIPTION OF PROCEDURE: Antibiotics were given intravenously preoperatively and a successful left femoral nerve block and then a general endotracheal anesthetic was established. A tourniquet was placed on the left upper thigh and not inflated. The left lower extremity was prepped and draped in the usual sterile fashion, elevated and after an appropriate time out the tourniquet was inflated. A longitudinal incision was made for a medial parapatellar approach to the knee. Bovie cautery used to coagulate crossing vessels. Then a medial parapatellar arthrotomy was performed. Subperiosteal dissection around the proximal, medial and lateral tibial plateau was performed. The patella was everted and the knee flexed. The anterior cruciate ligament (ACL) debrided. The drill placed down the center of the femoral canal. The distal femoral cutting jig set at 5 degrees valgus cut at 9 mm resection level for a left knee. The block was pinned in position. It was noteworthy that the bone was very, very hard. It seemed to be a bit thin laterally, but we went by what the jig told us. We then measured the distal femur. AP sizing jig measured for a size 9. 3 degrees of external rotation dialed in, the pin was placed, 4-in-1 block applied. The anterior, posterior, and chamfer cuts performed. Again, the bone was very sclerotic and hard. A sulcus cut osteotomy was then performed using the jib by applying it to the distal end of the femur. We exposed the proximal tibia, using the extramedullary alignment jig, estimating it to be parallel to the mechanical axis of the tibia, referencing off the medial tibial condyle at 4 mm resection level. The block was pinned into position. Secondary check of the extramedullary isabel confirmed we appeared to be parallel to the mechanical axis. Then the proximal tibial osteotomy was thus performed. The lamina crutcher helper was placed laterally and we performed a completion medial meniscectomy with debridement of posteromedial osteophytes. Then placed the lamina crutcher helper medially and performed a completion lateral meniscectomy with debridement of posterolateral osteophytes. The spacer blocks were then trialed. The smallest spacer block was a 7 and that seemed to have good symmetry and flexion, and perfect tightness and stability; however, in extension it was a bit snug and actually a little more snug laterally than medial. Thus, given the asymmetry there, I felt it best to go back and revisit our distal femoral cut and take an additional 2 mm and took a little bit more lateral than medial. The batwing device was used to help set the distal femoral cutting jig back in its anatomic position, and then we moved the block back 2 mm and then performed an additional 2 mm distal femoral cut. We then placed the 4-in-1 block back on the distal femur and pinned it in position using the assistance of the batwing, and then the posterior chamfers and anterior chamfers were revised as well. The sulcus osteotomy jig was also placed and we revised the sulcus osteotomy. We then exposed the proximal tibia and sized for a 8 tibial tray, which was pinned into position, followed by the reamer and broach. The 7 mm was placed and the trial femoral component was placed. The femoral component fit very nicely and we brought the knee into extension. He actually did have good extension and good stability to varus and valgus stress test in both flexion and in extension. We brought the knee into extension, everted the patella and performed a patellar osteotomy and sized for a #38 button. Lug holes drilled. The trial was applied and the patellofemoral tracking was anatomic. Removed all the trial components and did drill down the medial tibial condyle because it was very sclerotic bone and I used a Delgado 2 mm drill to make multiple holes to help with fixation there. Exparel was placed in the subperiosteal tissues around the distal femur of the proximal tibia. Ms. Ghada Beth mixed the cement on the back table, she was also critical to the success of this difficult procedure by helping with appropriate soft tissue retraction, helped to manipulate the knee, as he had a very large leg, helped to close the wound, helped to mix the cement, helped to prepare the patient, amongst many other tasks to allow me to perform the operation smoothly, efficiently and safely. Once all the bony surfaces were copiously pulsatile lavage irrigated and dried, removed excess cement, placed the polyethylene, cemented the femoral component, removed excess cement, brought the knee into extension, cemented the patellar button, removed excess cement, and held it with a clamp until the cement hardened with the knee in full extension. While we were awaiting this, we copiously irrigated out the knee joint once again, and then we added tranexamic acid into the knee and then began closing the apex of the arthrotomy with two #1 PDS sutures. The medial parapatellar was closed with #1 PDS suture and the capsule was closed with a running double armed #1 Stratafix. The tourniquet was then released. We irrigated again and then closed the deep subdermal tissues with interrupted #2-0 PDS suture. The skin was closed with staple, covered by an Optifoam and dry sterile bulky dressing. He was then awakened from general endotracheal tube anesthesia and after having tolerated the procedure well and then transferred to the recovery room in stable condition. There were no intraoperative complications.
--- NOTE | 2019-05-10 18:30 | DSES ---
DATE OF ADMISSION: 05/07/2019 DATE OF DISCHARGE: 05/08/2019 ADMITTING DIAGNOSIS: Osteoarthritis, left knee. OTHER DIAGNOSES: 1. Gastric reflux disease. 2. Hypertension. 3. Cardiomegaly. 4. Pulmonary nodules. 6. History of a deep vein thrombosis. 7. Premature ventricular contractions. 8. Anxiety. 9. Sleep apnea. 10. History of basal cell carcinoma. DISCHARGE DIAGNOSIS: Osteoarthritis, left knee, status post left total knee arthroplasty. OPERATION PERFORMED: Left total knee arthroplasty. HISTORY: A 63-year-old male patient with progressive worsening left knee pain and stiffness failed to improve with conservative management. He was admitted for elective knee replacement on the left side. HOSPITAL COURSE: The patient was admitted on day of surgery and underwent a left total knee arthroplasty, which was uneventful. He did well in the postoperative period, and hospital course was without complications. He was up with physical therapy per their protocol. His pain was controlled. On day of discharge, he was doing well, weightbearing as well as tolerated on his left lower extremity. He will use thromboembolic deterrent (KELLI) stockings for 30 days postoperative for deep vein thrombosis (DVT) prophylaxis. He will also use Eliquis 2.5 mg per his christian science nurse and primary for his DVT prophylaxis as well. He will use oral pain medications for pain control. He will resume his preoperative medications and diet. He will followup in our office in 10-14 days for surgical followup. He was given instructions to include, but not limited to, wound monitoring and activity limitations. Please refer to the medical record further detail.
== END 2019-05-08 11:55 | disposition home or self-care (01) | DRG 302 ==
LOC: M SDC 07:02 → M MS5PR 14:05 → EDSTATUS 15:05 → M MS5PR 15:12
PROVIDERS: ADMIT Orthopaedic Surgery; ATTEND Orthopaedic Surgery
PROC: 0SRD0J9 Replacement of Left Knee Joint with Synthetic Substitute, Cemented, Open Approach (ICD-10-PCS; principal; 2019-05-07 09:35)
DX: M17.12 Unilateral primary osteoarthritis, left knee (principal); I11.0 Hypertensive heart disease with heart failure; R91.8 Other nonspecific abnormal finding of lung field; K21.9 Gastro-esophageal reflux disease without esophagitis; Z86.718 Personal history of other venous thrombosis and embolism; F41.9 Anxiety disorder, unspecified; G47.33 Obstructive sleep apnea (adult) (pediatric); Z85.828 Personal history of other malignant neoplasm of skin; I49.3 Ventricular premature depolarization; Z88.1 Allergy status to other antibiotic agents; Z79.82 Long term (current) use of aspirin; Z79.01 Long term (current) use of anticoagulants; Z79.899 Other long term (current) drug therapy; Z96.651 Presence of right artificial knee joint

== ENCOUNTER → 2024-04-26 | Outpatient (REF) ==
[~2024-04-26] MED LIST changes: -ACETAMINOPHEN 500 MG TAB PO ONE; +AMLO1TAB24 PO; -AMLO5TAB6 PO; -ASPI81TA85 PO; +ASPI81TA86 PO; +ENOX150I3 SUBQ; +LOSA100T46 PO; -LOSA100T50 PO; -LR 1,000 ML IV ONE; +OMEP40CA4 PO; -OMEP40CA97 PO; -PAXI10TA12 PO; +PAXI10TA13 PO; -VANCOMYCIN HCL 750 MG, VIAL MATE ADAPTER 1 EACH in D5W 250 ML IV ONE; -fentaNYL 100 MCG/2 ML INJECTION (J3010) IV SCH
[2024-04-27 20:12] LABS: SOURCE PERIPHERAL SMEAR
== END ==
LOC: M CFLAB 10:45
DX: D75.1 Secondary polycythemia (principal)